=== PATIENT | female | born 1975 | race Hispanic/Latino ===

== ENCOUNTER → 2018-08-12 | Outpatient (CLI) | payer MEDICARE, OTHER | END | disposition home or self-care (01) | LOC: RAH 15:08 | PROVIDERS: ATTEND Family Medicine | DX: Z12.31 Encounter for screening mammogram for malignant neoplasm of breast (principal) | CPT/HCPCS: 77067 ==

== ENCOUNTER → 2018-08-21 | Outpatient (CLI) | payer MEDICARE, OTHER | END | disposition home or self-care (01) | LOC: RAH 14:42 | PROVIDERS: ATTEND Family Medicine | DX: N63.23 Unspecified lump in the left breast, lower outer quadrant (principal) | CPT/HCPCS: 76641 ==

== ENCOUNTER → 2020-08-02 | Outpatient (CLI) | payer MEDICARE | END | disposition home or self-care (01) | LOC: RAH 15:33 | PROVIDERS: ATTEND Family Medicine | DX: Z12.31 Encounter for screening mammogram for malignant neoplasm of breast (principal) | CPT/HCPCS: 77067 ==

== ENCOUNTER → 2022-10-12 | Outpatient (CLI) | payer OTHER, MEDICARE, MEDICAID | END | disposition home or self-care (01) | LOC: RAH 13:44 | PROVIDERS: ATTEND Surgery | DX: D17.79 Benign lipomatous neoplasm of other sites (principal) | CPT/HCPCS: 71250; 73200 ==

== ENCOUNTER → 2023-10-02 | Outpatient (CLI) | payer MEDICARE, OTHER | END | disposition home or self-care (01) | LOC: RAH 14:58 | PROVIDERS: ATTEND Family Medicine | DX: Z12.31 Encounter for screening mammogram for malignant neoplasm of breast (principal); R92.323 Mammographic fibroglandular density, bilateral breasts; N63.20 Unspecified lump in the left breast, unspecified quadrant; N63.10 Unspecified lump in the right breast, unspecified quadrant | CPT/HCPCS: 77067 ==

== ENCOUNTER 2024-07-16 18:49 | Emergency (ER) | payer OTHER, MEDICAID ==
[~2024-07-16] VITALS: Ht 175.3 cm; Wt 174.6 kg
--- NOTE | 2024-07-16 19:30 | ERN ---
ED Note History of Present Illness Stated Complaint: FALL Chief Complaint: Mechanical Fall Time Seen by MD: 18:56 Time Seen by Midlevel: 18:56 Dictation: The patient is a 49-year-old female with a history of MR who presents to the emergency department after a follow up onset prior to arrival. Per mother patient was getting out of the shower she slipped and fell landing on her knees. Patient reports she hit her forehead. Denies any LOC, denies nausea or vomiting, denies any use of blood thinners or bleeding disorders. Per mother patient acting appropriate to self. Denies any other injuries. Allergies: Coded Allergies: No Known Drug Allergies (Unverified Allergy, Unknown, 07/16/24) Past Medical History Past Medical History: Other Additional Past Medical Hx: MR Surgical History: None LMP: June 28, 2024 RN Note Reviewed/Agreed w/PFSH: Yes Review of System Dictation Constitutional: Negative for fever,chills, and weight loss Eyes: Negative for injury, pain,redness, and discharge ENT: Negative for injury,pain or swelling Cardiovascular: Negative for chest pain, palpitations, and edema Respiratory: Negative for shortness of breath, cough, and wheezing, Abdomen/GI: Negative for abdominal pain, nausea, vomiting, diarrhea, and constipation Back: Negative for injury and pain : Negative for injury, bleeding and discharge MS/Extremity: Negative for injury and deformity positive for bilateral knee pain Skin: Negative for rash, and discoloration Neuro: Negative for headache, weakness, numbness, tingling, and seizure Psych: Negative for suicide ideation, homicidal ideation, and hallucinations Initial Vital Sign VS Vital Signs Date Time Temp Pulse Resp B/P (MAP) Pulse Ox O2 Delivery O2 Flow Rate FiO2 07/16/24 19:07 98.2 83 20 125/80 96 Room Air 07/16/24 19:22 0 21 Physical Exam Dictation Vital Signs reviewed General Appearance: Alert, oriented x 3, no acute distress, well developed, nourished. Head and Face: non-traumatic. Eyes: PERRL, pink conjunctivas, eyelid no trauma, anterior chamber with arcus senilis. Ears: Pinnas intact and no signs of trauma or erythema ear canals clear and no discharge TM no erythema Nose: No discharge, no bleeding. Oropharynx: Mouth normal, tongue pink. pharynx clear,no erythema, tonsils no exudates, no abscesses noted, mucous membrane moist Neck: Supple, non-tender, no thyromegaly, no masses, no JVD, no bruits Breast:Deferred Chest:No tenderness, no crepitus, no paradoxical movement, no retractions Lungs:Clear, well-ventilated, symmetric, no rales, no wheezing, no rhonchi, no stridor, good breath sounds bilaterally Heart: Regular rate, regular rhythm, no murmur, no gallops Vascular: no peripheral edema, Abdomen: Soft, positive bowel sounds, nondistended, no guarding, nontender, no rebound, no masses no hepatomegaly, no splenomegaly, no Shaw's sign, no hernias. Rectal: Deferred Genital: Deferred Neurological: Normal speech, motor function intact, sensory function intact Musculoskeletal: Neck nontender, full range of motion, back nontender, full range of motion, Extremities: nontender, full range of motion Skin: Color pink, dry, no turgor, no rash, no lacerations, no abrasions, no contusions. Lymphatic: Deferred Results (Laboratory/Radiology) Laboratory/Radiology REASON: fall ORDERING PHYSICIAN: SLADE GARCIA SIEVE REPAIRER PROCEDURE: KNEE 3V LT - KNEE 3VWS LT KNEE 3VWS LT HISTORY: Status post fall COMPARISON: None TECHNIQUE: 3 images of the left knee were obtained. FINDINGS: There is no acute displaced fracture or dislocation. IMPRESSION: 1. Findings as described above. REASON: fall ORDERING PHYSICIAN: SLADE GARCIA SIEVE REPAIRER PROCEDURE: KNEE 3V RT - KNEE 3VWS RT KNEE 3VWS RT HISTORY: Status post fall COMPARISON: None TECHNIQUE: 3 images of the right knee were obtained. FINDINGS: There is no acute displaced fracture or dislocation. Degenerative changes are seen. IMPRESSION: 1. Findings as described above. Labs Reviewed?: Yes ED Course ED Course Orders Procedure Category Date Status Time Knee 3vws Rt RAD 07/16/24 Resulted 19:11 Knee 3vws Lt RAD 07/16/24 Resulted 19:11 Acetaminophen 500mg PHA 07/16/24 Complete Tab (Tylenol 500mg T 19:30 Current Medications Medications (Trade) Dose Ordered Sig/Eleonora Route PRN Reason Start Time Stop Time Status Last Admin Dose Admin Acetaminophen (TYLenol 500MG TAB) 1,000 mg ONCE ONCE PO 07/16/24 19:30 07/16/24 19:40 DC 07/16/24 19:42 Vital Signs Date Time Temp Pulse Resp B/P (MAP) Pulse Ox O2 Delivery O2 Flow Rate FiO2 07/16/24 19:22 98.2 83 20 125/80 96 Room Air* 0 21 07/16/24 19:07 98.2 83 20 125/80 96 Room Air Medical Decision Making MDM The patient is a 49-year-old female with a history of MR who presents to the emergency department after a follow up onset prior to arrival. Per mother patient was getting out of the shower she slipped and fell landing on her knees. Patient reports she hit her forehead. Denies any LOC, denies nausea or vomiting, denies any use of blood thinners or bleeding disorders. Per mother patient acting appropriate to self. Denies any other injuries. No obvious fracture seen on x-ray. Charles CT head rule unnecessary for CT scan. On physical exam patient is ambulatory, in no acute distress, no hematomas noted to forehead or scalp. No raccoon eyes, no ashley signs. Patient with no episodes of vomiting. Patient is alert and at baseline according to mother. Patient will be discharged to follow up with PCP. Exam is discussed with mother and I also discussed with mother the Charles CT head rule in mother agrees. Patient will be discharged follow up with PCP. Differential diagnosis: Knee contusion, concussion, knee dislocation Need for hospitalization: Patient does not meet criteria for hospitalization. There are no social concerns with this patient. DX & DISP Disposition: Discharge Departure Impression: Primary Impression: Fall Additional Impression: Knee contusion Condition: Stable Additional Instructions: Please follow up with the primary doctor in 1-2 days. If symptoms worsen, patient develops severe nausea and vomiting, altered level of consciousness from her baseline. Please return to ER FOLLOW-UP WITH PRIMARY CARE PROVIDER IN 1 TO 2 DAYS. TAKE MEDICATIONS DIRECTED HERE IN THE EMERGENCY ROOM. OKAY TO CONTINUE HOME MEDICATIONS UNLESS OTHERWISE DISCUSSED DURING YOUR VISIT IN THE EMERGENCY ROOM TODAY. RETURN TO YOUR NEAREST EMERGENCY ROOM IF SYMPTOMS WORSEN OR IF THERE IS NO IMPROVEMENT. CALL 911 IF YOU NEED IMMEDIATE ASSISTANCE. TAKE TYLENOL OR MOTRIN [id number] NEEDED AND IF NO CONTRAINDICATIONS ARE PRESENT. INCREASE ORAL HYDRATION. A WOUND CULTURE OR URINE CULTURE WAS ORDERED HERE IN THE EMERGENCY ROOM DEPARTMENT PLEASE FOLLOW-UP WITH PRIMARY CARE PROVIDER AND ADVISE THEM TO GET REPEAT PORTS FROM OUR FACILITY. IF YOU HAD ANY PETER WRAP/SPLINTS THAT WERE APPLIED HERE, PLEASE DO NOT REMOVE THEM UNTIL YOU SEE YOUR PRIMARY CARE OR SPECIALTY. Referrals: ANDREY NAVA MD (PCP) Time of Disposition: 20:17 I have reviewed the case, and I agree with, Diagnosis and Plan SLADE GARCIA SIEVE REPAIRER July 16, 2024 19:30
[2024-07-16] MEDS: acetaMINOPHEN 500 MG TABLET PO ONE (19:42)
--- NOTE | 2024-07-16 20:24 | HMCIMG ---
KNEE 3VWS LT HISTORY: Status post fall COMPARISON: None TECHNIQUE: 3 images of the left knee were obtained. FINDINGS: There is no acute displaced fracture or dislocation. IMPRESSION: 1. Findings as described above.
--- NOTE | 2024-07-16 20:25 | HMCIMG ---
KNEE 3VWS RT HISTORY: Status post fall COMPARISON: None TECHNIQUE: 3 images of the right knee were obtained. FINDINGS: There is no acute displaced fracture or dislocation. Degenerative changes are seen. IMPRESSION: 1. Findings as described above.
[2024-07-16 20:27] VITALS: BP 128/84; PULSE 80; RESP 20; TEMP 98.2; O2SAT 96
== END 2024-07-16 20:28 | disposition home or self-care (01) ==
LOC: EDH 18:49
DX: S80.02XA Contusion of left knee, initial encounter (principal); S80.01XA Contusion of right knee, initial encounter; W01.0XXA Fall on same level from slipping, tripping and stumbling without subsequent striking against object, initial encounter; Y93.89 Activity, other specified; Y92.89 Other specified places as the place of occurrence of the external cause; Y99.8 Other external cause status
CPT/HCPCS: 73562; 99283